=== PATIENT | female | born 1975 | race Caucasian/White ===

== ENCOUNTER 2018-03-02 09:14 | Inpatient (IN) ==
[2018-03-02] MEDS ORDERED: RINGER'S SOLUTION,LACTATED 1,000 ML IV PRN (12:00)
[2018-03-02] MEDS ORDERED: NALBUPHINE HCL 10 MG/ML AMPUL IV PRN (12:00)
[2018-03-02] MEDS ORDERED: MISOPROSTOL 100 MCG TABLET VG SCH (12:00)
[2018-03-02 12:17] LABS: Hematocrit 36.4 % (37.0-47.0); Hemoglobin 12.2 gm/dL (12.5-16.0); Mean Cell Volume 88.8 fl (78-100); Mean Corpuscular Hemoglobin 29.8 pg (27-31); Mean Corpuscular Hgb Conc 33.5 g/dl (32-36); Mean Platelet Volume 10.1 fl (8-12.5); Neutrophil # 7.1 K/mm3 (1.3-6.0); Neutrophil % 73.5 % (42-75.0); Platelet Count 268 K/mm3 (150-450); Red Cell Distribution Width 13.2 % (11.5-14.0); White Blood Count 9.7 K/mm3 (4.0-10.5)
[2018-03-02 12:30] LABS: Prothrombin Time (Patient) 9.6 Seconds (9.0-11.0)
[2018-03-02 12:31] LABS: INR 0.96 INR (0.90-1.10)
[2018-03-02] MEDS ORDERED: MISOPROSTOL 200 MCG TABLET PO SCH (13:15)
[2018-03-02] MEDS ORDERED: MISOPROSTOL 200 MCG TABLET VG SCH (13:26)
[2018-03-02] MEDS ORDERED: MISOPROSTOL 200 MCG TABLET PO ONE (16:19)
[2018-03-02] MEDS ORDERED: oxyCODONE HCL/ACETAMINOPHEN 1 TAB TABLET PO PRN (17:36)
[2018-03-02] MEDS ORDERED: DOXYCYCLINE HYCLATE 100 MG TABLET PO STA (20:33)
[2018-03-02] MEDS ORDERED: metroNIDAZOLE/SODIUM CHLORIDE 500 MG/100 ML BAG IV ONE (20:34)
[2018-03-02] MEDS ORDERED: DOXYCYCLINE HYCLATE 100 MG TABLET ONE (20:50)
--- NOTE | 2018-03-02 20:53 | OR ---
Operative Report - Dictated Report Narrative: Vaginal delivery of a demised fetus 42 yo, [place] CF, with a demise at 14.4 weeks diagnosed today. Induced with cytotec x 2 doses (200 mcg and 400 mcg). Delivered the demised fetus at 19:15. Nurse Ángel clamped and cut the cord. I came and examined the fetus soon after delivery. Fetus appeared male, with cord around the neck and the body. Head appeared collapsed. Skin still pink and intact. There was no other obvious deformities. Speculum exam showed a thin cord with membrane at the cervical os. Attempt to remove the placenta with ring forceps was not successful at the bedside. There was no laceration. Mother was stable. EBL: 250 ml. Plan for suction D & C to remove the retained placena. Patient and wanted to take baby home. They did not want any testing on the baby. They agreed to have placenta sent to pathology.
--- NOTE | 2018-03-02 20:54 | ANES ---
Anesthesia Pre Procedure Eval Vitals/Labs: Last Vital Signs Temp 36.6 C 03/02/18 15:20 Pulse 74 03/02/18 15:20 Resp 16 03/02/18 15:20 BP 111/75 03/02/18 15:20 Pulse Ox 100 03/02/18 15:20 HOME MEDICATIONS calcium carbonate 500 mg (1,250 mg)-vitamin D3 400 unit tablet 1 tab PO DAILY [Last Taken Unknown] vits no.126-ferrous fum 28 mg iron-folic acid 800 mcg tablet 1 tab PO DAILY tab 02/28/18 [Last Taken 03/02/18] Allergies/Adverse Reactions: Allergies Allergy/AdvReac Type Severity Reaction Status Date / Time No Known Allergies Allergy Verified 03/02/18 12:00 - Planned Procedure Planned Procedure: Z3A.16 16 WKS NO HEART TONE Medication List Reviewed:: Yes Allergies Verified: Yes Medical History (Last Reviewed 03/02/18 @ 20:53 by Avni Cotter CRNA) state, incidental (Acute) Onset Date: 11/08/17 delivery delivered No active medical problems Family History (Last Reviewed 03/02/18 @ 20:53 by Avni Cotter CRNA) Father Alive and well Mother CVA (cerebral vascular accident) - Family Anesthesia History Family History:: no untoward family reactions to anesthesia - Airway/Neck/Teeth Within Normal Limits:: Yes Mallampatti Score: 2 Thyromental (T-M) distance: > 6 cm Mandibulo Hyoid distance: > 3 cm - Respiratory Respiratory: lungs clear Smoking Status: Never smoker - Cardiovascular Patient History - Cardiac/Respiratory: No pertinent hx Tolerates Activity: Good Heart Sounds: S1 & S2, Regular - Anesthesia Assessment and Plan ASA Class: PS, I, E Anesthesia Type Plan: MAC Planned difficult intubation/equipment available: No
--- NOTE | 2018-03-02 22:12 | ANES ---
Post Anesthesia Assessment - Vital Signs Vitals: Last Vital Signs Temp 36.6 C 03/02/18 15:20 Pulse 71 03/02/18 20:10 Resp 20 03/02/18 20:10 BP 127/61 03/02/18 20:10 Pulse Ox 99 03/02/18 20:10 Airway Patency: Normal - Mental Status Level Of Consciousness: Appropriate, Drowsy - Pain Level Pain Score: 2 - N/V Assessment Nausea/Vomiting Presence: None Dehydration:: No
--- NOTE | 2018-03-02 22:12 | ANES ---
Post Anesthesia Discharge - Transfer of Care Transfer of Care handoff given to nurse: Yes - Discharge to [facility] Discharge to [facility]-no complications/pt stable: Yes - Pt transferred to OB.
--- NOTE | 2018-03-02 22:17 | OR ---
Operative Report - Dictated Report Narrative: Date of Procedure: 03/02/2018 PROCEDURE: Suction, D&C. ANESTHESIA: General with IV medication. PREOPERATIVE DIAGNOSIS: 1. Retained placenta 2. Status post vaginal delivery of a demised fetus POSTOPERATIVE DIAGNOSES: 1. Retained placenta 2. Status post vaginal delivery of a demised fetus SURGEON: Gold Martinez MD [employer]BILE DEVELOPER: Mattie FINDINGS: 1. Enlarged uterus 15 week size with an open cervical os, sounded to 13 cm 2. A large piece, but incomplete placenta tissue was outside of the vagina and a small amount of placenta tissue from suction D&C SPECIMEN: 1. product of conception. DRAINS: None. URINE OUTPUT: 25 ml BLOOD LOSS: 20 ml INTRAOPARATIVE IV FLUIDS: 900 ml COMPLICATIONS: None. DESCRIPTION OF PROCEDURE: The patient was consented prior to the operation and taken to the operating room. She was placed on the operating table supine. SCDs were placed on her lower extremities. General anesthesia was induced. She was then repositioned in the dorsal lithotomy position. Exam under anesthesia revealed a large piece, but incomplete placental tissue fell outside of vagina prior to prepping and the uterus was enlarged to about 15 week size. The abdomen and vagina were prepped with Betadine. She was then draped in the usual sterile fashion. A time -out procedure was conducted to confirm the correct patient for the correct procedure. After time-out, the bladder was drained with a straight catheter. A bivalve speculum was placed into the vagina. The cervix was visualized. The vagina and the cervix were prepped with Betadine one more time. The anterior cervix was grasped with a ring forceps. The uterus was sounded to 13 cm. The cervix already dilated to about 2 cm. A size 12 plastic curette was inserted into the uterine cavity. The suction was activated and the curette was rotated to clear the uterus off the product of conception. The suction curette was removed. A sharp curette was inserted into the uterine cavity. The cavity was scraped in all directions until a gritty texture was felt. Small amount of product of conception was obtained. The sharp curette was removed. The suction curette was re-introduced into the uterine cavity to clear the uterus of the remaining product of conception. The suction curette was removed. There was minimal bleeding from the cervix. The ring forceps was removed. The speculum were removed. Patient tolerated the procedure well. All counts were correct. The patient was taken to the recovery room in stable condition. Gold Martinez MD
[2018-03-02] MEDS ORDERED: IBUPROFEN 800 MG TABLET PO PRN (22:21)
[2018-03-02] MEDS ORDERED: DOXYCYCLINE HYCLATE 100 MG TABLET PO ONE (22:23)
[2018-03-03] MEDS ORDERED: DOXYCYCLINE HYCLATE 100 MG TABLET ONE (00:34)
--- NOTE | 2018-03-03 08:12 | PN ---
Subjective - Date and Time Seen Date: 03/03/18 Subjective Narrative: day 1. s/p of a demised fetus at 16.2 weeks and suction D&C for retained placenta. no complaints. ambulating well. light vaginal bleeding since suction D&C. pain controlled. Objective - Vitals Vitals: Last Vital Signs Temp 36.4 C 03/03/18 01:00 Pulse 64 03/03/18 03:21 Resp 16 03/03/18 03:21 BP 102/62 03/03/18 03:21 Pulse Ox 100 03/03/18 03:21 - Abnormal Lab Findings Abnormal Lab Findings: Abnormal Lab Results 03/02/18 Range/Units 12:12 RBC 4.10 L (4.2-5.4) M/mm3 Hgb 12.2 L (12.5-16.0) gm/dL Hct 36.4 L (37.0-47.0) % Immature Gran % (Auto) 0.50 H (0.001-0.429) % Immature Gran # (Auto) 0.05 H (0.000-0.0310) K/mm3 Lymphocytes % 18.0 L (20-51) % Neutrophils # 7.1 H (1.3-6.0) K/mm3 - Exam Constitutional: Present: Alert, Oriented x3, Cooperative Respiratory: Present: no respiratory distress Cardiovascular/Chest: Present: normal peripheral pulses Abdomen: Present: soft, nontender, nondistended, other - fundus not palpable Extremity: Present: normal range of motion, no pedal edema, no calf tenderness Skin Exam: Present: normal color, warm/dry, no cyanosis Appearance: Present: appropriate appearance Eye contact: Present: cooperative, good eye contact, normal speech Cauti Physician Documentation - Urinary Catheter Management Straight Date of Insertion: 03/02/18 Time of Insertion: 20:00 Assessment/Plan Plan Narrative: A: day 1, s/p vaginal delivery of a demised fetus at 16.2 weeks and suction D&C for retained placenta. Stable Plan: will discharge home today. Gold Martinez MD
[2018-03-03 12:08] VITALS: BP 106/68
== END 2018-03-03 09:30 | disposition home or self-care (01) | DRG 770 ==
LOC: RAD 09:14 → OB 11:26
PROVIDERS: ADMIT Obstetrics & Gynecology; ATTEND Obstetrics & Gynecology
DX: O03.4 Incomplete spontaneous abortion without complication
CPT/HCPCS: 36415; 76815; 85025; 85610; 85730; 86850; 86900; 88305; 88307